=== PATIENT | female | born 1945 | race Asian ===

== ENCOUNTER → 2017-03-10 | Outpatient (CLI) | payer OTHER, MEDICAID ==
[~2017-03-10] MED LIST: CEPH500T PO; HTN MEDICATION PO; INSNOV SQ; METF500T4 PO; MUPI22O TP; SULF1TAB42 PO
== END | disposition home or self-care (01) ==
LOC: RADPV 14:36
PROVIDERS: ATTEND Family Medicine
DX: M25.461 Effusion, right knee (principal)